=== PATIENT | female | born 1970 | race Caucasian/White ===

== ENCOUNTER 2017-05-19 18:01 | Observation (INO) | payer OTHER ==
[2017-05-19] MEDS ORDERED: COZAAR PO ONE (20:24)
--- NOTE | 2017-05-19 20:25 | DR.GENAD ---
HPI - PCP Primary Care Physician: Danni - HPI Comment HPI Comment: SHE WAS CHECK FOR FLU AT [facility] AND WAS NEGATIVE. SHE IS HAVING LEFT SIDED HEADACHE THAT IS WORSE. TREATED FOR RECENT SINUSITIS. - Complaint/Symptoms Chief Complaint Doctors Comments: PATIENT HAVE FEVER, GENERALIZE BODYACHES AND SOB WITH CHEST DISCOMFORT NOTED TODAY. Chief Complaint:: pt is c/o chest discomfort and back pain. Pt is concerned it may be from her medications she is taking for her sinus infection. 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 Past Surgical History Comment: breast augmentation, cone biopsy in vaginal area - Family History History of Family Medical Conditions: Yes Family Medical History: Cancer, Coronary Artery Disease, Hypertension - Social History Does patient currently use any type of tobacco product: No Have you used tobacco products in the last 12 months: No Type of Tobacco Use: None Does any household member use tobacco: No Alcohol Use: Occasionally Do you use any recreational Drugs:: No Lives With: Spouse Lives Where: Home - infectious screening In the last 2 months have you had wt loss of >10#?: NO Have you had fever, night sweats or hemotysis?: No Have you traveled outside the country in the last 6 months?: No Isolation: Standard ROS - Review of Systems Constitutional: Chills, Fever, Weakness, Fatigue. negative: Diaphoresis, Malaise Eyes: No Symptoms Reported. negative: Eye Pain, Discharge ENTM: Nose Congestion. negative: Ear Pain, Nose Discharge, Throat Pain Respiratoy: Non-Productive Cough, Short of Breath. negative: Wheezing, Hemoptysis Cardiovascular: Chest Pain. negative: Edema, Palpitations Gastrointestinal/Abdominal: No Symptoms Reported. negative: Abdominal Pain, Diarrhea, Nausea, Vomiting Genitourinary: No Symptoms Reported. negative: Dysuria, Frequency, Hematuria Neurological: Headache, Weakness, Dizziness Musculoskeletal: Muscle Pain Integumentary: No Symptoms Reported Hematologic/Lymphatic: No Symptoms Reported Endocrine: No Symptoms Reported All Other Systems: Reviewed and Negative PE - Vital Signs Vitals: Temperature 99.2 F Pulse Rate 95 Respiratory Rate 18 Blood Pressure [Right Arm] 150/70 Blood Pressure [Left Arm] 115/57 Blood Pressure 138/93 O2 Sat by Pulse Oximetry 99 - General Limitations: No Limitations General Appearance: Alert - Head Head Exam: Normal Inspection - Eyes Eye exam: Normal Appearance - ENT ENT Exam: Normal External Ear Exam External Ear Exam: Normal External Inspection TM/Canal Exam: Bilateral Bulging Nose Exam: Sinus Tenderness (LEFT MAXILLARY) Mouth Exam: Normal Inspection Throat Exam: Normal Inspection - Neck Neck Exam: Trachea Midline - Chest Chest Inspection: Symmetric Chest Wall Rise - Respiratory Respiratory Exam: Normal Lung Sounds Bilat Respiratory Exam: Bilateral Rhonchi, Lower Rhonchi - Cardiovascular Cardiovascular Exam: Regular Rate, Normal Rhythm, Normal Heart Sounds - Abdominal Exam Abdominal Exam: Normal Bowel Sounds, Soft. negative: Tenderness - Extremities Extremities Exam: Normal Inspection - Back Back Exam: Normal Inspection - Neurologic Neurological Exam: Alert, Oriented X3, CN II-XII Intact, Normal Gait, Reflexes Normal. negative: Motor Sensory Deficit - Psychiatric Psychiatric Exam: Normal Affect, Normal Mood - Skin Skin Exam: Normal Color MDM - Additional Information Additional Information Obtained From: Family - Differential Diagnosis Differential Diagnosis: GENERALIZE ACHES AND PAIN, FEVER, UTI, BRONCHITIS, PNEUMONIA Course - Treatment Treatment: SEE ORDERS. - Consultation Consultation Comments: DISCUSS PATIENT WITH DR. SHEEHAN. HE WILL ADMIT PATIENT. - Education/Counseling Education/Counseling: Patient, Family, Education Educated On: Treatment, Diagnosis, Needs for Follow Up ROR - Labs Reviewed Laboratory Results Reviewed?: Yes Result Diagrams: 05/20/17 02:25 05/20/17 02:25 Laboratory: WBC 20.1 X10^3/uL (3.6-10.0) H* 05/19/17 20:35 RBC 4.24 X10^6/uL (3.5-5.4) 05/19/17 20:35 Hgb 12.0 g/dL (12.0-16.0) 05/19/17 20:35 Hct 36.0 % (36.0-47.0) 05/19/17 20:35 MCV 84.9 fL (80.0-100.0) 05/19/17 20:35 MCH 28.3 pg (27.0-34.0) 05/19/17 20:35 MCHC 33.4 g/dL (33.0-35.0) 05/19/17 20:35 RDW 13.6 % (11.6-16.5) 05/19/17 20:35 Plt Count 278 X10^3/uL (150.0-450.0) 05/19/17 20:35 MPV 8.1 fL (7.4-11.0) 05/19/17 20:35 Neut % 86.2 % (42.0-75.0) H 05/19/17 20:35 Lymph % 8.0 % (21.0-51.0) L 05/19/17 20:35 [place]ot % 3.5 % (0.0-13.0) 05/19/17 20:35 Eos % 2.0 % (0.9-2.9) 05/19/17 20:35 Baso % 0.3 % (0.2-1.0) 05/19/17 20:35 Neut # 17.3 x10^3/uL (2.2-4.8) H 05/19/17 20:35 Lymph # 1.6 X10^3/uL (1.3-2.9) 05/19/17 20:35 [place]ot # 0.7 x10^3/uL (0.3-0.8) 05/19/17 20:35 Eos # 0.4 x10^3/uL (0.0-0.2) H 05/19/17 20:35 Baso # 0.1 X10^3/uL (0.0-0.1) 05/19/17 20:35 Absolute Nucleated RBC 0.0 /100WBC 05/19/17 20:35 INR Target Range - 05/19/17 20:35 INR 0.96 (0.8-1.3) 05/19/17 20:35 PTT 27.4 SECONDS (22.9-36.5) 05/19/17 20:35 PTT Comment - 05/19/17 20:35 Sample Site Rbra 05/19/17 22:39 ABG pH 7.460 (7.35-7.45) H 05/19/17 22:39 ABG pCO2 39.0 mmHg (35.0-45.0) 05/19/17 22:39 ABG pO2 74.0 mmHg (80.0-100.0) L 05/19/17 22:39 ABG HCO3 27.7 mmol/L (22-26) H 05/19/17 22:39 ABG O2 Saturation 95.0 % (90-100) 05/19/17 22:39 ABG Base Excess 3.7 mmol/L (-2.0-2.0) H 05/19/17 22:39 Paul Test Na 05/19/17 22:39 A-a Gradient 27.0 mmHg 05/19/17 22:39 FiO2 21.000 05/19/17 22:39 Blood Gas Comments Mihaela abg well-mtf 05/19/17 22:39 Sodium 135 mmol/L (136-145) L 05/19/17 20:35 Corrected Sodium TNP 05/19/17 20:35 Potassium 4.0 mmol/L (3.5-5.1) 05/19/17 20:35 Chloride 102 mmol/L (98-107) 05/19/17 20:35 Carbon Dioxide 30.6 mmol/L (21-32) 05/19/17 20:35 BUN 10 mg/dL (7-18) 05/19/17 20:35 Creatinine 0.84 mg/dL (0.55-1.02) 05/19/17 20:35 Est GFR (MDRD) Af Amer > 60 (>60) 05/19/17 20:35 Est GFR (MDRD) Non-Af > 60 (>60) 05/19/17 20:35 Glucose 97 mg/dL (65-99) 05/19/17 20:35 Lactic Acid 1.2 mmol/L (0.4-2.0) 05/19/17 22:35 Calcium 8.8 mg/dL (8.5-10.1) 05/19/17 20:35 Corrected Calcium TNP 05/19/17 20:35 Magnesium 1.6 mg/dL (1.7-2.9) L 05/19/17 20:35 Total Bilirubin 0.30 mg/dL (0.2-1.0) 05/19/17 20:35 AST 14 Units/L (15-37) L 05/19/17 20:35 ALT 19 Units/L (12-78) 05/19/17 20:35 Alkaline Phosphatase 46 Units/L (46-116) 05/19/17 20:35 Creatine Kinase 98 Units/L (26-192) 05/19/17 20:35 CK-MB (CK-2) < 1.0 ng/mL (0-4.0) 05/19/17 20:35 CK/CKMB % Calc 1.0 % (<4) 05/19/17 20:35 Troponin I < 0.02 ng/mL (0-1.5) 05/19/17 20:35 B-Natriuretic Peptide 55.9 pg/mL (0-79) 05/19/17 20:35 Total Protein 7.7 g/dL (6.4-8.2) 05/19/17 20:35 Albumin 3.6 g/dL (3.4-5.0) 05/19/17 20:35 Globulin 4.1 g/dL (2.5-4.5) 05/19/17 20:35 Albumin/Globulin Ratio 0.9 Ratio (1.1-2.1) L 05/19/17 20:35 Specimen Type Clean catch urine 05/19/17 20:09 Urine Color Yellow (YELLOW) 05/19/17 20:09 Urine Appearance Hazy (CLEAR) 05/19/17 20:09 Urine pH 7.0 (5.0 - 8.0) 05/19/17 20:09 Ur Specific [place] 1.005 (1.000-1.030) 05/19/17 20:09 Urine Protein Negative (NEGATIVE) 05/19/17 20:09 Urine Glucose (UA) Negative (NEGATIVE) 05/19/17 20:09 Urine Ketones Negative (NEGATIVE) 05/19/17 20:09 Urine Occult Blood Negative (NEGATIVE) 05/19/17 20:09 Urine Nitrite Negative (NEGATIVE) 05/19/17 20:09 Urine Bilirubin Negative (NEGATIVE) 05/19/17 20:09 Urine Urobilinogen Normal (NORMAL) 05/19/17 20:09 Ur Leukocyte Esterase Negative (NEGATIVE) 05/19/17 20:09 Urine RBC 0-2 /HPF (NEGATIVE) 05/19/17 20:09 Urine WBC 0-2 /HPF (NEGATIVE) 05/19/17 20:09 Ur Squamous Epith Cells Rare /HPF (NEGATIVE) 05/19/17 20:09 Urine Bacteria Trace /HPF (NEGATIVE) 05/19/17 20:09 Ur Culture Indicated? No/not indicated 05/19/17 20:09 - XRAY XRAY Interpreted by: Radiologist XRAY Findings: REPORT DISCUSS WITH PATIENT. - EKG Rhythm: NSR (EKG NOTED) - Diagnosis Discharge Problem: Bronchitis, Weakness, Shortness of breath Fever Qualifiers: Fever type: unspecified Qualified Code(s): R50.9 - Fever, unspecified Leukocytosis Qualifiers: Leukocytosis type: leukemoid reaction Qualified Code(s): D72.823 - Leukemoid reaction - Discharge Plan Disposition: ADMITTED INPATIENT Condition: Stable - Follow ups/Referrals - Instructions
[2017-05-19] MEDS ORDERED: TORADOL 30 MG VIAL IVP ONE (20:37)
[2017-05-19 20:48] LABS: BASOPHILS # (AUTO) 0.1 X10^3/uL (0.0-0.1); BASOPHILS % (AUTO) 0.3 % (0.2-1.0); EOSINOPHILS # (AUTO) 0.4 x10^3/uL (0.0-0.2); LYMPHOCYTES # (AUTO) 1.6 X10^3/uL (1.3-2.9); MEAN CORPUSCULAR HEMOGLOBIN 28.3 pg (27.0-34.0); MEAN CORPUSCULAR HGB CONC 33.4 g/dL (33.0-35.0); MEAN CORPUSCULAR VOLUME 84.9 fL (80.0-100.0); MEAN PLATELET VOLUME 8.1 fL (7.4-11.0); MONOCYTES # (AUTO) 0.7 x10^3/uL (0.3-0.8); MONOCYTES % (AUTO) 3.5 % (0.0-13.0); NEUTROPHILS # (AUTO) 17.3 x10^3/uL (2.2-4.8); NEUTROPHILS % (AUTO) 86.2 % (42.0-75.0); PLATELET COUNT 278 X10^3/uL (150.0-450.0); RED BLOOD COUNT 4.24 X10^6/uL (3.5-5.4); RED CELL DISTRIBUTION WIDTH 13.6 % (11.6-16.5)
[2017-05-19 20:51] LABS: WHITE BLOOD COUNT 20.1 X10^3/uL (3.6-10.0)
[2017-05-19] MEDS ORDERED: TORADOL 30 MG VIAL ONE (20:55)
[2017-05-19 20:57] LABS: BILIRUBIN,URINE NEGATIVE (NEGATIVE); BLOOD/HEMOGLOBIN,URINE NEGATIVE (NEGATIVE); GLUCOSE, URINE NEGATIVE (NEGATIVE); KETONES,URINE NEGATIVE (NEGATIVE); LEUKOCYTE ESTERASE ,URINE NEGATIVE (NEGATIVE); NITRITES,URINE NEGATIVE (NEGATIVE); PROTEIN,URINE NEGATIVE (NEGATIVE); UROBILINOGEN,URINE NORMAL (NORMAL)
--- NOTE | 2017-05-19 20:58 | RAD ---
HISTORY: Chest pain. Study: Chest one view Comparison: None. Findings: The trachea is midline. The cardiac silhouette is unremarkable. The lungs are clear without focal infiltrate or effusion. The bony thorax is unremarkable. IMPRESSION: 1. No acute cardiopulmonary disease. Reported By:
[2017-05-19 21:02] LABS: ALBUMIN 3.6 g/dL (3.4-5.0); ALKALINE PHOSPHATASE 46 Units/L (46-116); ASPARTATE AMINO TRANSFERASE 14 Units/L (15-37); BLOOD UREA NITROGEN 10 mg/dL (7-18); CALCIUM 8.8 mg/dL (8.5-10.1); CARBON DIOXIDE 30.6 mmol/L (21-32); CHLORIDE 102 mmol/L (98-107); CREATININE 0.84 mg/dL (0.55-1.02); GLUCOSE 97 mg/dL (65-99); MAGNESIUM 1.6 mg/dL (1.7-2.9); SODIUM 135 mmol/L (136-145); TOTAL PROTEIN 7.7 g/dL (6.4-8.2); eGFR BLACK RACES > 60 (>60); eGFR NON BLACK RACES > 60 (>60)
[2017-05-19 21:07] LABS: APPEARANCE,URINE HAZY (CLEAR); BACTERIA,URINE TRACE /HPF (NEGATIVE); COLOR,URINE YELLOW (YELLOW); RBC,URINE 0-2 /HPF (NEGATIVE); SQUAMOUS EPITHELIAL CELL,UR RARE /HPF (NEGATIVE)
[2017-05-19 21:10] LABS: ALANINE AMINOTRANSFERASE 19 Units/L (12-78)
[2017-05-19 21:21] LABS: CREATINE KINASE 98 Units/L (26-192); CREATINE KINASE MB < 1.0 ng/mL (0-4.0); TROPONIN I < 0.02 ng/mL (0-1.5)
[2017-05-19 22:46] LABS: ABG BASE EXCESS 3.7 mmol/L (-2.0-2.0); ABG HCO3 27.7 mmol/L (22-26)
--- NOTE | 2017-05-19 23:28 | CT ---
EXAM: CT BRAIN WITHOUT CONTRAST INDICATION: Headache COMPARISION: No Priors TECHNIQUE: Routine axial CT of the brain was performed without intravenous contrast. FINDINGS: The cerebral and cerebellar cortex are normal. The ventricular system is nondilated. No intra or ext ra-axial mass or hemorrhage. The molina-white junction is preserved. There is no evidence of subacute ischemic change. The basilar cisterns are clear. The skull is intact. The mastoid air cells are clear. IMPRESSION: Normal brain CT examination Reported By:
[2017-05-19] MEDS ORDERED: ROCEPHIN VIAL 1 GM 1 GM in NS 50 ML IV + SPIKE MINIBAG* 50 ML IV SCH (23:45)
[2017-05-19] MEDS ORDERED: NS 1/2 1000 ML IV 1,000 ML IV ONE (23:51)
[2017-05-19] MEDS ORDERED: ROCEPHIN 1 GM IV PREMIX * OUT OF STOCK 50 ML IV ONE (23:52)
[2017-05-20] MEDS: NS 1/2 1000 ML IV 1,000 ML IV SCH ×2 (00:07→14:49)
[2017-05-20] MEDS ORDERED: NS 1000 ML 1,000 ML ONE (00:22)
[2017-05-20] MEDS ORDERED: SOLU-Medrol 125 MG VIAL ONE (00:22)
[2017-05-20] MEDS: NORCO 5/325 MG TAB PO PRN ×3 (02:36→17:11)
[2017-05-20 02:50] LABS: BASOPHILS % (AUTO) 0.2 % (0.2-1.0); EOSINOPHILS # (AUTO) 0.7 x10^3/uL (0.0-0.2); HEMATOCRIT 35.3 % (36.0-47.0); LYMPHOCYTES # (AUTO) 1.9 X10^3/uL (1.3-2.9); LYMPHOCYTES % (AUTO) 10.6 % (21.0-51.0); MEAN CORPUSCULAR HEMOGLOBIN 28.6 pg (27.0-34.0); MEAN CORPUSCULAR HGB CONC 33.9 g/dL (33.0-35.0); MEAN CORPUSCULAR VOLUME 84.4 fL (80.0-100.0); MONOCYTES # (AUTO) 0.6 x10^3/uL (0.3-0.8); MONOCYTES % (AUTO) 3.6 % (0.0-13.0); NEUTROPHILS # (AUTO) 14.4 x10^3/uL (2.2-4.8); NEUTROPHILS % (AUTO) 81.6 % (42.0-75.0); PLATELET COUNT 314 X10^3/uL (150.0-450.0); RED BLOOD COUNT 4.19 X10^6/uL (3.5-5.4); RED CELL DISTRIBUTION WIDTH 13.7 % (11.6-16.5); WHITE BLOOD COUNT 17.7 X10^3/uL (3.6-10.0)
[2017-05-20 02:58] LABS: ALANINE AMINOTRANSFERASE 18 Units/L (12-78); ALBUMIN 3.4 g/dL (3.4-5.0); ALKALINE PHOSPHATASE 46 Units/L (46-116); ASPARTATE AMINO TRANSFERASE 13 Units/L (15-37); BLOOD UREA NITROGEN 9 mg/dL (7-18); CALCIUM 8.4 mg/dL (8.5-10.1); CARBON DIOXIDE 29.2 mmol/L (21-32); CHLORIDE 103 mmol/L (98-107); CREATININE 0.78 mg/dL (0.55-1.02); GLUCOSE 93 mg/dL (65-99); SODIUM 142 mmol/L (136-145); TOTAL PROTEIN 7.4 g/dL (6.4-8.2); eGFR BLACK RACES > 60 (>60); eGFR NON BLACK RACES > 60 (>60)
[2017-05-20 03:02] LABS: CHOL/HDL RATIO 2.1 (0.0-5.0)
[2017-05-20 03:17] LABS: CKMB % 1.2 % (<4); CREATINE KINASE 82 Units/L (26-192); CREATINE KINASE MB < 1.0 ng/mL (0-4.0); TROPONIN I < 0.02 ng/mL (0-1.5)
[2017-05-20 04:46] VITALS: BMI 21.2
[2017-05-20] MEDS: MAGNESIUM SULFATE 1 GM/100 mL PREMIX 1 GM/100 ML BAG IV SCH ×2 (08:51→10:34)
[2017-05-20 08:59] LABS: CKMB % 1.5 % (<4); CREATINE KINASE 65 Units/L (26-192); CREATINE KINASE MB < 1.0 ng/mL (0-4.0); TROPONIN I < 0.02 ng/mL (0-1.5)
[2017-05-20] MEDS: VSL#3 PO SCH (10:33)
[2017-05-20] MEDS: DIFLUCAN PO SCH (10:33)
--- NOTE | 2017-05-20 11:52 | RAD ---
HISTORY: Shortness of breath. Study: Portable chest. Comparison: Chest x-ray dated May 19, 2017. Findings: The trachea is midline. The cardiac silhouette is unremarkable. The lungs are clear without focal infiltrate or effusion. The bony thorax is unremarkable. IMPRESSION: 1. No acute cardiopulmonary disease. Reported By:
--- NOTE | 2017-05-20 12:33 | DR.H&P ---
H&P - History & Physical for Day of: H&P Date: 05/20/17 - Chief Complaint Chief Complaint: CHEST PAIN, SOB, COUGH, FEVER, BACK PAIN, HEADACHE - Allergies Allergies/Adverse Reactions: Allergies Allergy/AdvReac Type Severity Reaction Status Date / Time Sulfa (Sulfonamide Allergy Verified 05/20/17 04:17 Antibiotics) [SULFA] - History of Present Illness History of Present Illness: IS A 46 YEAR OLD PATIENT OF [facility] WHO PRESENTED TO THE ER WITH COMPLAINTS OF CHEST DISCOMFORT WITH SHORTNESS OF BREATH AND COUGH, FEVER, BACK PAIN, AND LEFT SIDED HEADACHE. SHE STATED THAT HER SYMPTOMS STARTED AROUND 4AM ON 05/19/17. PATIENT WAS RECENTLY SEEN AT [facility] AND TREATED FOR SINUSITIS. ON AUSCULTATION, UPPER RHONCHI NOTED BILATERLLY. ON ARRIVAL TO ER, VITALS WERE 99.2-95-18-99%-138/93. CBC WNL EXCEPT 20.1. CMP WNL EXCEPT SODIUM 135, MAGNESIUM 1.6, AST 14. CHEST XRAY CLEAR. BRAIN CT NORMAL FOR ACUTE INTRACRANIAL ABNORMALITY. SHE WAS GIVEN TORADOL 30MG IV IN ER. SHE EXPRESSED IMPROVEMENT IN PAIN. SHE WAS ALSO GIVEN ROCEPHIN 1 GM IV IN ER. WE ADMITTED PATIENT FOR FURTHER TREATMENT AND EVALUATION. WE STARTED PATIENT ON ROCEPHIN 1GM IV DAILY , NS @ 75ML/HR, AND NORCO 5/325MG PO Q6H PRN PAIN. ON MORNING ROUNDS, PATIENT WAS NOTED ALERT AND ORIENT. PATIENT LYING IN BED ON MORNING ROUNDS. PATIENT CONTINUES WITH COMPLAINTS OF SHORTNESS OF BREATH , COUGH, AND HEADACHE. LUNGS WERE NOTED WITH BILATERAL UPPER RHONCHI. VITALS THIS AM WERE 97.6-60-16-97%-107/58. CBC WNL EXCEPT WBC 17.7, HCT 35.3. HDL CHOLESTEROL 79. CHEST XRAY CLEAR. PATIENT STATED THAT SHE OFTEN GETS YEAST INFECTION WHEN TAKING ANTIBIOTICS. WE WILL START HER ON DIFLUCAN PROPHYLACTICALLY. WE PLANNED TO CONTINUE WITH CURRENT PLAN OF CARE, RECHECK LABS AND XRAY AND FOLLOW UP WITH PATIENT IN AM. 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 denies: No Symptoms Reported, See HPI, Fever, Sweats, Weakness, Malaise, Other Eyes: No Symptoms Reported. denies: See HPI, Pain, Vision Change, Conjunctivae Inflammation, Eyelid Inflammation, Redness, Other ENT: No Symptoms Reported, Nose Congestion. denies: See HPI, Ear Pain, Ear Discharge, Nose Pain, Nose Discharge, Mouth Pain, Mouth Swelling, Throat Pain, Throat Swelling, Other Respiratory: Cough, Shortness of Breath. denies: No Symptoms Reported, See HPI , Dry, Hemoptysis, SOB with Excertion, Pleuritic Pain, Sputum, Wheezing, Other Cardiovascular: Chest Pain, See HPI. denies: No Symptoms Reported, Palpitations , Orthopnea, Paroxysmal Noc. Dyspnea, Edema, Light Headedness, Other Gastrointestinal: No Symptoms Reported. denies: See HPI, Nausea, Vomiting, Abdominal Pain, Diarrhea, Constipation, Melena, Hematochezia, Other Genitourinary: No Symptoms Reported. denies: See HPI, Dysuria, Frequency, Incontinence, Hematuria, Retention, Other Musculoskeletal: Back Pain. denies: No Symptoms Reported, See HPI, Shoulder Pain, Arm Pain, Hand Pain, Leg Pain, Foot Pain, Neck Pain, Other Skin: No Symptoms Reported. denies: See HPI, Rash, Lesions, Jaundice, Bruising , Wound, Ecchymosis, Other Neurological: No Symptoms Reported. denies: See HPI, Weakness, Numbness, Incoordination, Change in Speech, Confusion, Seizures, Other - Physical Exam Vital Signs: Temperature 97.6 F Pulse Rate [Left Brachial] 60 Pulse Rate [Right Brachial] 73 Respiratory Rate 16 Blood Pressure [Right Arm] 108/63 Blood Pressure [Left Arm] 107/58 O2 Sat by Pulse Oximetry 97 Oriented: Normal Eyes: Normal. negative: Blurred Vision, Diplopia, Discharge, Pain, Redness, Photophobia, Other Ear: Normal. negative: Right, Left, Swelling, Ecchymosis, Hemotypanum, Abrasion , Laceration Nose: Normal. negative: Injected, Discharge, Blood, Other Throat: Normal Respiratory: RUL Rhonchi, MARIA ISABEL Rhonchi. negative: Clear Throughout, Diminished Throughout, Rhonchi Throughout, Rales Throughout, Wheezes Throughout, RUL Clear , RML Clear, RLL Clear, MARIA ISABEL Clear, LML Clear, LLL Clear, RUL Diminished, RML Diminished, RLL Diminished, MARIA ISABEL Diminished, LML Diminished, LLL Diminished, RUL Absent, RML Absent, RLL Absent, MARIA ISABEL Absent, LML Absent, LLL Absent, RML Rhonchi , RLL Rhonchi, LML Rhonchi, LLL Rhonchi, RUL Insp. Wheeze, RML Insp. Wheeze, RLL Insp. Wheeze, MARIA ISABEL Insp.Wheeze, LML Insp.Wheeze, LLL Insp.Wheeze, RUL Exp. Wheeze, RML Exp. Wheeze, RLL Exp. Wheeze, MARIA ISABEL Exp. Wheeze, LML Exp. Wheeze, LLL Exp. Wheeze, RUL Rales, RML Rales, RLL Rales, MARIA ISABEL Rales, LML Rales, LLL Rales, RUL Rub, RML Rub, RLL Rub, MARIA ISABEL Rub, LML Rub, LLL Rub, RUL Squeak, RML Squeak, RLL Squeak, MARIA ISABEL Squeak, LML Squeak, LLL Squeak Cardiovascular: Normal. negative: Tachycardia, Bradycardia, Irregular, S3, S4, Systolic, Diastolic, Murmur, Edema, Other : Normal. negative: Dysuria, Hematuria, Frequency, Discharge, Testicular Pain , Bleeding, , Other Auscultation: Bowel Sounds: Normal. negative: Bruit, Absent, Increased, Decreased, High Pitched, Other Palpation: Normal. negative: Spleen Enlarged, Liver Enlarged, Mass Pulsatile, Other Tenderness: Normal. negative: Diffuse, RUQ, RLQ, LUQ, LLQ, Epigastric, Periumbilical, Suprapubic, Mild, Moderate, Severe, Rebound, Guarding, Rigidity, Other Skin: Normal. negative: Decreased Turgur, Rash, Papular, Macular, Maculopapular , Vesicular, Pustular, Petechial, Red, Tender, Hot, Diaphoresis, Wound, Bruising , Ecchymosis, Other Musculoskeletal: Normal. negative: Right, Left, Shoulder, Clavicle, Arm, Elbow , Forearm, Wrist, Hand, Hip, Thigh, Knee, Leg, Ankle, Foot, Back:Thoracic, Back: Lumbar, Back:Midline, Back:Paraspinous, Pelvis, Swelling, Tender, Deformity, Pulse Deficit, Motor Deficit, Sensory Deficit, Instability, Crepitance Psychiatric: Normal. negative: Anxiety, Depression, Agitation, Other Mood Description: Calm. negative: Angry, Apathetic, Depressed, Fearful, Flat, Happy, Hostile, Sad, Suspicious, Withdrawn, Anxious, Appropriate, Labile Affect: Normal. negative: Angry, Anxious, Depressed, Flat, Hysterical, Quiet, Violent Speech Pattern: Clear. negative: Appropriate, Unclear, Inappropriate, Delayed, Slurred, Excessive, Aphasic, Artificially Ventilated - Assessment/Plan (1) Bronchitis Status: Acute Plan: START ROCEPHIN 1GM IV DAILY, CHECK CHEST XRAY, MONITOR LABS, CONTINUE TO MONITOR PATIENT (2) Shortness of breath Status: Acute Plan: SUPPLEMENTAL OXYGEN, CHECK CHEST XRAY, CONTINUE TO MONITOR (3) Weakness Status: Acute Plan: CONTINUE TO MONITOR (4) Yeast infection Status: Acute Plan: START DIFLUCAN DAILY AND PROBIOTICS, CONTINUE TO MONITOR (5) GERD (gastroesophageal reflux disease) Qualifiers: Esophagitis presence: esophagitis presence not specified Qualified Code(s) : K21.9 - Gastro-esophageal reflux disease without esophagitis Status: Chronic Plan: CONTINUE PROTONIX 40MG DAILY, CONTINUE TO MONITOR (6) HTN (hypertension) Qualifiers: Hypertension type: essential hypertension Qualified Code(s): I10 - Essential (primary) hypertension Status: Chronic Plan: CONTINUE LOSARTAN 25MG DAILY, CONTINUE TO MONITOR
[2017-05-20] MEDS ORDERED: PATIENT'S HOME MEDICATION (Losartan Potassium [Losartan Potassium] 25 MG) PO SCH (13:00)
[2017-05-20] MEDS ORDERED: NS 1/2 1000 ML IV 1,000 ML IV ONE (14:47)
[2017-05-20] MEDS: PROTONIX TAB 40 MG PO SCH (14:50)
[2017-05-20] MEDS ORDERED: COZAAR PO SCH (17:06)
[2017-05-20] MEDS ORDERED: ROCEPHIN VIAL 1 GM 1 GM in NS 50 ML IV + SPIKE MINIBAG* 50 ML IV SCH (21:00)
[2017-05-20] MEDS ORDERED: VITAMIN D3 PO SCH (21:00)
[2017-05-20] MEDS ORDERED: CHOLECALCIFEROL 2000 UNIT PO SCH (21:00)
[2017-05-21] MEDS ORDERED: NS 1/2 1000 ML IV 1,000 ML IV ONE (01:37)
[2017-05-21] MEDS: NS 1/2 1000 ML IV 1,000 ML IV SCH ×2 (01:40→07:30)
[2017-05-21 05:05] LABS: BASOPHILS % (AUTO) 0.4 % (0.2-1.0); EOSINOPHILS # (AUTO) 0.8 x10^3/uL (0.0-0.2); EOSINOPHILS % (AUTO) 10.6 % (0.9-2.9); HEMATOCRIT 32.5 % (36.0-47.0); HEMOGLOBIN 11.1 g/dL (12.0-16.0); LYMPHOCYTES # (AUTO) 2.1 X10^3/uL (1.3-2.9); LYMPHOCYTES % (AUTO) 28.5 % (21.0-51.0); MEAN CORPUSCULAR HEMOGLOBIN 29.1 pg (27.0-34.0); MEAN CORPUSCULAR HGB CONC 34.2 g/dL (33.0-35.0); MEAN CORPUSCULAR VOLUME 85.2 fL (80.0-100.0); MEAN PLATELET VOLUME 8.4 fL (7.4-11.0); MONOCYTES # (AUTO) 0.4 x10^3/uL (0.3-0.8); MONOCYTES % (AUTO) 5.7 % (0.0-13.0); NEUTROPHILS # (AUTO) 4.1 x10^3/uL (2.2-4.8); NEUTROPHILS % (AUTO) 54.8 % (42.0-75.0); PLATELET COUNT 273 X10^3/uL (150.0-450.0); RED BLOOD COUNT 3.81 X10^6/uL (3.5-5.4); RED CELL DISTRIBUTION WIDTH 13.9 % (11.6-16.5); WHITE BLOOD COUNT 7.5 X10^3/uL (3.6-10.0)
[2017-05-21 05:16] LABS: ALANINE AMINOTRANSFERASE 17 Units/L (12-78); ALBUMIN 2.8 g/dL (3.4-5.0); ALKALINE PHOSPHATASE 39 Units/L (46-116); ASPARTATE AMINO TRANSFERASE 13 Units/L (15-37); BLOOD UREA NITROGEN 8 mg/dL (7-18); CALCIUM 7.7 mg/dL (8.5-10.1); CARBON DIOXIDE 29.2 mmol/L (21-32); CHLORIDE 108 mmol/L (98-107); COR CA(FOR HYPOALB) 8.7 mg/dL (8.5-10.1); CREATININE 0.73 mg/dL (0.55-1.02); GLUCOSE 87 mg/dL (65-99); SODIUM 142 mmol/L (136-145); TOTAL PROTEIN 6.4 g/dL (6.4-8.2); eGFR BLACK RACES > 60 (>60); eGFR NON BLACK RACES > 60 (>60)
--- NOTE | 2017-05-21 06:31 | RAD ---
HISTORY: Shortness of breath Study: Chest one view Comparison: None Findings: The trachea is midline. The cardiac silhouette is upper limits normal in size. No congestive heart failure is noted.. The lungs are clear without focal infiltrate or effusion. The bony thorax is un remarkable. IMPRESSION: 1. No acute cardiopulmonary disease. Reported By:
[2017-05-21] MEDS: DIFLUCAN PO SCH (08:15)
[2017-05-21] MEDS: NORCO 5/325 MG TAB PO PRN (08:15)
[2017-05-21] MEDS: PROTONIX TAB 40 MG PO SCH (08:15)
[2017-05-21] MEDS: VSL#3 PO SCH (08:36)
[2017-05-21 08:52] VITALS: BP 116/71
[2017-05-21] MEDS ORDERED: COZAAR PO SCH (09:00)
--- NOTE | 2017-05-21 18:25 | DR.CARTERD ---
- Discharge Summary for: Discharge Summary for Date of:: 05/21/17 - Admission Date Date of Admission: 05/20/17 - Admission Diagnoses Admission Diagnosis: (1) Bronchitis (2) Shortness of breath (3) Weakness (4) Yeast infection (5) GERD (gastroesophageal reflux disease) (6) HTN (hypertension) - Discharge Date Discharge Date: 05/21/17 - Discharge Diagnoses Discharge Diagnosis: (1) Bronchitis (2) Shortness of breath (3) Weakness (4) Yeast infection (5) GERD (gastroesophageal reflux disease) (6) HTN (hypertension) - Hospital Course Hospital Course: IS A 46 YEAR OLD PATIENT OF [facility] WHO PRESENTED TO THE ER WITH COMPLAINTS OF CHEST DISCOMFORT WITH SHORTNESS OF BREATH AND COUGH, FEVER, BACK PAIN, AND LEFT SIDED HEADACHE. SHE STATED THAT HER SYMPTOMS STARTED AROUND 4AM ON 05/19/17. PATIENT WAS RECENTLY SEEN AT [facility] AND TREATED FOR SINUSITIS. ON AUSCULTATION, UPPER RHONCHI NOTED BILATERLLY. ON ARRIVAL TO ER, VITALS WERE 99.2-95-18-99%-138/93. CBC WNL EXCEPT 20.1. CMP WNL EXCEPT SODIUM 135, MAGNESIUM 1.6, AST 14. CHEST XRAY CLEAR. BRAIN CT NORMAL FOR ACUTE INTRACRANIAL ABNORMALITY. SHE WAS GIVEN TORADOL 30MG IV IN ER. SHE EXPRESSED IMPROVEMENT IN PAIN. SHE WAS ALSO GIVEN ROCEPHIN 1 GM IV IN ER. WE ADMITTED PATIENT FOR FURTHER TREATMENT AND EVALUATION. WE STARTED PATIENT ON ROCEPHIN 1GM IV DAILY , NS @ 75ML/HR, AND NORCO 5/325MG PO Q6H PRN PAIN. ON MORNING ROUNDS, FOLLOWING ADMISSION, PATIENT WAS NOTED ALERT AND ORIENT. PATIENT LYING IN BED ON MORNING ROUNDS. PATIENT CONTINUES WITH COMPLAINTS OF SHORTNESS OF BREATH, COUGH, AND HEADACHE. LUNGS WERE NOTED WITH BILATERAL UPPER RHONCHI. VITALS THIS AM WERE 97.6-60-16-97%-107/58. CBC WNL EXCEPT WBC 17.7, HCT 35.3. HDL CHOLESTEROL 79. CHEST XRAY CLEAR. PATIENT STATED THAT SHE OFTEN GETS YEAST INFECTION WHEN TAKING ANTIBIOTICS. WE STARTED HER ON DIFLUCAN PROPHYLACTICALLY. ON THE DAY OF DISCHARGE, PATIENT WAS ALERT AND ORIENTED, AMBULATING IN ROOM. SHE HAS NO COMPLAINTS ON ROUNDS. LUNGS ARE CLEAR ON AUSCULTATION. VITALS THIS AM WERE 97.7-73-20-99%-108/63. CBC WNL EXCEPT HGB 11.1, HCT 32.5. CMP WNL EXCEPT CHLORIDE 108, CALCIUM 7.7, AST 13, ALKALINE [id number], ALBUMIN 2.8. CHEST XRAY CLEAR. WE PLANNED FOR DISCHARGE. INSTRUCTIONS FOR MEDICATIONS AND FOLLOW UP WERE GIVEN TO PATIENT. SHE VERBALIZED UNDERSTANDING. WE WILL SEND HER HOME WITH PRESCRIPTIONS FOR AUGMENTIN 875MG BID X 10 DAYS, DIFLUCAN 150MG DAILY FOR 5 DAYS, TUSSIONEX 5 ML Q12H PRN, AND TESSALON PERLES 200MG TID PRN. PATIENT WAS DISCHARGED HOME IN STABLE CONDTION WITH INSTRUCTIONS TO FOLLOW UP IN OUR OFFICE NEXT WEEK. - Discharge Medications Discharge Medications: Losartan Potassium 25 mg PO DAILY 05/20/17 [History] Amoxicillin/Potassium Clav [Augmentin 875-125 Tablet] 1 tab PO Q12H #20 tab [Rx] Benzonatate [TESSALON PERLES *] 200 mg PO TID PRN #30 cap 05/21/17 [Rx] Fluconazole [DIFLUCAN TAB 150 MG *] 150 mg PO DAILY #5 tab 05/21/17 [Rx] Hydrocodone Polist/Chlorphenir [TUSSIONEX PENNKINETIC 12-HR SUSP *] 5 ml PO Q12H PRN #60 ml 05/21/17 [Rx]
== END 2017-05-21 11:55 | disposition home or self-care (01) ==
LOC: ER 18:12 → MED/SURG 05-20 00:45
PROVIDERS: ADMIT Internal Medicine; ATTEND Internal Medicine
DX: J20.8 Acute bronchitis due to other specified organisms (principal); R53.1 Weakness; B37.89 Other sites of candidiasis; R06.02 Shortness of breath; R50.9 Fever, unspecified; R07.89 Other chest pain; R51 Headache; D72.828 Other elevated white blood cell count; D64.89 Other specified anemias; K21.9 Gastro-esophageal reflux disease without esophagitis; I10 Essential (primary) hypertension
CPT/HCPCS: 36415; 36600; 70450; 71010; 80053; 80061; 81001; 82550; 82553; 82803; 83605; 83735; 83880; 84484; 85025; 85610; 85730; 87040; 93005; 93010; 94760; 96365; 96367; 96374; 96375; 99284; A4222; G0378; J0696; J1885; J2930